=== PATIENT | male | born 1955 | race Native Hawaiian/Other Pacific Islander ===

== ENCOUNTER 2023-04-28 12:03 | Emergency (ER) | payer MEDICARE, OTHER, SELFPAY ==
[2023-04-28 12:36] VITALS: BP 117/67; PULSE 75; RESP 16; TEMP 36.6; O2SAT 97; BMI 23.5
--- NOTE | 2023-04-28 14:47 | ED.GENADULT ---
HPI - General Adult General Time Seen by Provider: 14:47 Date Seen: 04/28/23 Chief complaint: Unspecified Complaint, Adult Stated complaint: Bump on Back Arthur Him Time Seen by Provider: 04/28/23 14:45 Source: patient and RN notes reviewed Mode of arrival: ambulatory Limitations: no limitations History of Present Illness HPI narrative: Patient is a 68-year-old male coming in accompanied by female relative with concern of a lesion on his back that is painful. It has been there about a month, feels like it is getting bigger. Is now painful. No fevers. Female relative notes that she gets similar infected areas of her skin. It does not sound like he has had infected sebaceous cyst before. Related Data Previous Rx's Medication Instructions Recorded cephalexin 500 mg tablet 500 mg PO TID #21 tabs 04/28/23 Allergies Allergy/AdvReac Type Severity Reaction Status Date / Time No Known Drug Allergies Allergy Verified 04/28/23 12:41 Review of Systems Narrative: As per HPI Exam Const: Vital Signs, click to edit/add: Vital Signs - 24 hr 04/28/23 12:36 Temperature 98 F Pulse Rate [Pulse Oximeter] 75 Respiratory Rate 16 Blood Pressure [Ri ght Upper Arm] 117/67 Pulse Oximetry 97 Oxygen Delivery Me thod Room Air Documenting provider has reviewed patient's vital signs: yes Other: Patient is a 68-year-old male lying on his left side. He has some depigmented areas on his back consistent with vitiligo. Overlying the right shoulder blade area, has erythematous slightly raised painful and mildly fluctuant lesion, about dime-sized. There is a little central pustule that I can see. Needle was used to just open the central pustule area. Got a small amount of purulent drainage and then blood, minimal. There is inflammatory change about this. Overall lesion is small. Course Vital Signs Vital signs: Initial Vital Signs Temperature 98 F 04/28/23 12:36 Temperature Source Temporal Artery Scan 04/28/23 12:36 Pulse Rate 75 04/28/23 12:36 Respiratory Rate 16 04/28/23 12:36 Blood Pressure 117/67 04/28/23 12:36 Blood Pressure Mean 83 04/28/23 12:36 Blood Pressure Position Supine 04/28/23 12:36 Pulse Oximetry 97 04/28/23 12:36 Oxygen Delivery Method Room Air 06/10/23 12:36 Vital Signs Temperature 98 F 04/28/23 12:36 Pulse Rate 75 04/28/23 12:36 Respiratory Rate 16 04/28/23 12:36 Blood Pressure 117/67 04/28/23 12:36 Pulse Oximetry 97 04/28/23 12:36 Oxygen Delivery Method Room Air 04/28/23 12:36 Temperature 98 F 04/28/23 12:36 Pulse Rate 75 04/28/23 12:36 Respiratory Rate 16 04/28/23 12:36 Blood Pressure 117/67 04/28/23 12:36 Pulse Oximetry 97 04/28/23 12:36 Oxygen Delivery Method Room Air 04/28/23 12:36 Discharge Plan Discharge Clinical Impression: Infected cyst of skin Patient Disposition: Home, Self-Care Condition: Stable Instructions: Cyst (ED) Additional Instructions: Start antibiotic and take as prescribed. Can use some Tylenol per bottle directions as needed for pain control. May need to use a bandage and some bacitracin as this may drained. If the lesion does not completely resolve, recommend follow up in clinic in 2-4 weeks to assess this for possible excision. If this is a small sebaceous cyst, you want to remove it when it is not infected. If the area of redness is getting bigger, have increasing pain or concerned that the infection is worsening, seek re-evaluation in the interim. Activity Level: Activity as Tolerated Prescriptions: New cephalexin 500 mg tablet 500 mg PO TID Qty: 21 0RF Stand Alone Forms: [facility] Info Instructions
== END 2023-04-28 15:25 | disposition home or self-care (01) ==
PROVIDERS: Emergency Provider Family Medicine
DX: L72.9 Follicular cyst of the skin and subcutaneous tissue, unspecified (principal)
CPT/HCPCS: 99282; 99283

== ENCOUNTER 2024-11-06 15:31 | Emergency (ER) | payer MEDICARE, OTHER, SELFPAY ==
[2024-11-06 15:48] VITALS: BP 143/83; PULSE 100; RESP 16; TEMP 36.9; O2SAT 94
[2024-11-06 16:49] LABS: PCR FLU A Negative PCR FLU A (Negative); PCR FLU B Negative PCR FLU B (Negative); PCR RSV Negative PCR RSV (Negative); SARS PCR* Negative SARS-CoV-2 (Negative)
--- NOTE | 2024-11-06 17:26 | CRLHL7_ITS ---
For Patients: As a result of the Century Cures Act, medical imaging exams and procedure reports are released immediately into your electronic medical record. You may view this report before your referring provider. If you have questions, please contact your health care provider. INDICATION: Cough. TECHNIQUE: Chest 2 view. COMPARISON: None. FINDINGS: Cardiovascular: Heart size and vasculature are normal in caliber and appearance. Lungs and pleural spaces: No focal consolidation, pleural effusion, or pneumothorax. Minimal atelectasis in the right costophrenic angle. There is a subtle spiculated nodular opacity in the left upper lung overlying the 6th posterior rib measuring approximately 8 mm. Bones and soft tissues: No significant findings. IMPRESSION: 1. No acute cardiopulmonary findings. 2. Subtle spiculated nodular opacity in the left upper lung. This could be further evaluated with nonemergent chest CT. Dictated by Magdalena Johnson MD @ 11/06/2024 6:22:42 PM (Electronically Signed)
--- NOTE | 2024-11-06 17:29 | ED_ITS ---
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 Symptoms have been going on for the past 4 days. Is not aware of any other sick contacts. He does have prostate cancer in takes daily Xtandi. No recent changes to his regimen. Denies fevers but has had some chills. Has been feeling mildly fatigued. Denies chest pain, shortness of breath, abdominal pain, diarrhea, constipation, numbness, headache, vision changes, lightheadedness, dizziness. Has been using cepacol lozenges with some improvement in his symptoms. His cough has been dry. Has not noticed any difficulty breathing. Has some mild pain when he swallows. States his main co ncern was so sore throat. Related Data Home Medications ?Medication ?Instructions ?Recorded ?Confirmed atorvastatin 20 mg tablet 20 mg PO QPM 11/06/24 11/06/24 enzalutamide 40 mg capsule (Xtandi) 160 mg PO DAILY 11/06/24 11/06/24 Allergies Allergy/AdvReac Type Severity Reaction Status Date / Time No Known Drug Allergies Allergy Verified 12/10/23 13:34 Review of Systems Status of ROS: Reports: 10 or more systems reviewed and unremarkable except as noted in History and below [facility] Social History Smoking Status: Never smoker Exam Narrative: Exam Narrative: Const: Well-nourished, Well-developed, in mild distress Eyes: PERRL, no conjunctival injection, and symmetrical lids HENT: Atraumatic external nose and ears. Moist mucous membranes. Mild oropharynx erythema. Uvula midline, no tonsillar exudates or swelling. No swelling noticed underneath the tongue Neck: Symmetric, trachea midline, No thyromegaly. CVS: RRR, No murmurs or gallops. Peripheral pulses 2+ and equal in all extremities RESP: Unlabored respiratory effort. Clear to auscultation bilaterally. GI: Nontender/Nondistended, No rebound or guarding. MSK:Extremities w/o deformity, Normal Active ROM Skin: Warm, Dry. No rashes or lesions. Neuro: Normal Muscle tone, No focal neurological deficits. Psych: Awake, Alert, & Oriented x3. Appropriate mood and affect. Const: Vital Signs, click to edit/add: Vital Signs - 24 hr 11/06/24 15:48 Temperature 98.4 F Pulse Rate [Pulse Oximeter] 100 Respiratory Rate 16 Blood Pressure [Ri ght Upper Arm] 143/83 H Pulse Oximetry 94 Oxygen Delivery Me thod Room Air Course Vital Signs Vital signs: Initial Vital Signs Temperature 98.4 F 11/06/24 15:48 Temperature Source Oral 11/06/24 15:48 Pulse Rate 100 11/06/24 15:48 Respiratory Rate 16 11/06/24 15:48 Blood Pressure 143/83 H 11/06/24 15:48 Blood Pressure Mean 103 11/06/24 15:48 Blood Pressure Position Sitting 11/06/24 15:48 Pulse Oximetry 94 11/06/24 15:48 Oxygen Delivery Method Room Air 11/06/24 15:48 Vital Signs Temperature 98.4 F 11/06/24 15:48 Pulse Rate 100 11/06/24 15:48 Respiratory Rate 16 11/06/24 15:48 Blood Pressure 143/83 H 11/06/24 15:48 Pulse Oximetry 94 11/06/24 15:48 Oxygen Delivery Method Room Air 11/06/24 15:48 Temperature 98.4 F 11/06/24 15:48 Pulse Rate 100 11/06/24 15:48 Respiratory Rate 16 11/06/24 15:48 Blood Pressure 143/83 H 11/06/24 15:48 Pulse Oximetry 94 11/06/24 15:48 Oxygen Delivery Method Room Air 11/06/24 15:48 Medical Decision Making MDM Narrative Medical decision making narrative: Patient is a 69-year-old male presenting to the emergency department for sore throat her viral symptoms. Patient is not showing signs of peritonsillar absce ss, Nam angina, retropharyngeal abscess,Lemierre disease or any other concerning oral pharynx or deep neck space abscesses. Imaging is not necessary. He is due to him though taking medications for his cancer I will check some basic labs including CBC, BMP, troponin, EKG. Will do chest x-ray to look for signs of pneumonia. COVID/flu/RSV test ordered. Viral swabs are negative. His white count did come back slightly elevated at 13.7 but chest x-ray shows no clear sign of pneumonia. Does show a subtle nodular opacity left upper lung. This needs to be evaluated with a nonemergent chest CT. Considering he has the elevated white count and other history of prostate cancer I will do this CT scan today. It was done reviewed by myself and the radiologist showing some pulmonary nodules and a possible right upper lobe pneumonia. Cannot say for certain but I will treat him cautionary early with Augmentin. Informed him to have close follow-up with his primary care provider. Him and his daughter agree with this plan. I did give him a dose of dexamethasone for sore throat. He does have a primary care appointment in the next couple weeks. Lab Data Labs: Lab Results 11/06/24 11/06/24 11/06/24 Range/Units 16:00 17:26 17:41 WBC 13.70 H (4.50-11.00) K/uL RBC 3.83 L (4.30-5.90) m/uL Hgb 11.5 L (13.5-17.5) gm/dL Hct 34.6 L (37.0-53.0) % MCV 90 (80-100) fL MCH 30 (26-34) pg MCHC 33 (32-36) gm/dL RDW Coeff of Katherine 13.6 (11.5-15.5) % Plt Count 237 (140-440) K/uL Neut % (Auto) 43.0 (42.0-72.0) % Lymph % (Auto) 50.0 H (20-44) % [place] % (Auto) 50.0 H (0.0-11.0) % Eos % (Auto) 0.0 (0.0-7.0) % Baso % (Auto) 1.0 (0.0-3.0) % Neut # (Auto) 5.90 (1.7-7.0) K/uL Lymph # (Auto) 6.90 H (0.90-2.90) K/uL [place] # (Auto) 6.90 H (0.00-0.90) K/UL Eos # (Auto) 0.00 (0.00-0.50) K/uL Baso # (Auto) 0.10 (0.00-0.30) K/uL Abs Immat Gran (auto) 0.00 (0.00-0.30) K/uL Imm/Tot Granulo (auto) 0.0 % Diff Slide Review Req Man Differential (Acceptable) Sodium 139 (135-149) mmol/L Potassium 4.0 (3.6-5.1) mmol/L Chloride 106 (96-114) mmol/L Carbon Dioxide 25 (20-32) mmol/L Anion Gap 8 (7-15) mEq/L BUN 14 (7-30) mg/dL Creatinine 0.8 (0.5-1.5) mg/dL Estimated GFR 96 ml/min Glucose 112 (60-115) mg/dL Calcium 9.6 (8.4-10.6) mg/dL SARS-CoV-2 (PCR) Negative SARS-CoV-2 (Negative) Influenza Type A (PCR) Negative PCR FLU A (Negative) Influenza Type B (PCR) Negative PCR FLU B (Negative) RSV (PCR) Negative PCR RSV (Negative) POC Troponin I 0.01 (0.01-0.04) ng/ml Imaging Data Chest x-ray: Attestation: I have reviewed the pertinent imaging results. Radiologist's impression: 1. No acute cardiopulmonary findings. 2. Subtle spiculated nodular opacity in the left upper lung. This could be further evaluated with nonemergent chest CT. Dictated by Magdalena Johnson MD @ 11/06/2024 6:22:[address] scan - chest: Attestation: I have reviewed the pertinent imaging results. Radiologist's impression: 1. Patchy ground-glass opacities and minimal consolidation in the right upper lobe and right middle lobe are likely infectious or inflammatory. 2. Noncalcified pulmonary nodules measuring up to 9 mm. Some of these likely represent benign intrapulmonary lymph nodes. No suspicious left upper lobe nodule. Please see follow-up guidelines below. 3. Few small indeterminate sclerotic osseous lesions. Metastatic disease cannot be excluded. ECG Data Attestation: I personally reviewed and interpreted this ECG as follows: Prior ECG tracings: not available for review Interpretation: Normal sinus rhythm with a rate 97 beats per minute, normal intervals, normal axis, no ST or T-wave abnormalities. Discharge Plan Discharge Clinical Impression: Acute sore throat Pneumonia Qualifiers: Pneumonia type: due to unspecified organism Laterality: right Lung location: upper lobe of lung Qualified Code(s): J18.9 - Pneumonia, unspecified organism Patient Disposition: Home, Self-Care Condition: Stable Instructions: Upper Respiratory Infection (DC) Additional Instructions: Make sure to follow up with your primary care provider about your chest CT findings. You do have a pulmonary nodule that will need to be followed up on. Take the antibiotics as directed. Return for new worsening symptoms Prescriptions: No Action atorvastatin 20 mg tablet 20 mg PO QPM Xtandi 40 mg capsule 160 mg PO DAILY Follow Up/Referrals: Provider,Not a Local [Primary Care Provider] - Stand Alone Forms: [facility] Info Instructions
[2024-11-06 17:44] LABS: Hematocrit 34.6 % (37.0-53.0); Hemoglobin* 11.5 gm/dL (13.5-17.5); Mean Corpuscular HGB Conc 33 gm/dL (32-36); Mean Corpuscular Hemoglobin 30 pg (26-34); Mean Corpuscular Volume 90 fL (80-100); Platelet Count* 237 K/uL (140-440); RDW Coefficient of Variation % 13.6 % (11.5-15.5); Red Blood Count 3.83 m/uL (4.30-5.90)
[2024-11-06 17:53] LABS: Chloride* 106 mmol/L (96-114); Sodium* 139 mmol/L (135-149)
[2024-11-06 17:54] LABS: Slide Review Reflex Yes
[2024-11-06 17:54] LABS: Troponin, Point-of-Care* 0.01 ng/ml (0.01-0.04)
[2024-11-06 17:56] LABS: Anion Gap 8 mEq/L (7-15); Blood Urea Nitrogen* 14 mg/dL (7-30); Carbon Dioxide* 25 mmol/L (20-32); Creatinine* 0.8 mg/dL (0.5-1.5); Estimated Glomerular Filt Rate 96 ml/min
[2024-11-06 17:57] LABS: Calcium* 9.6 mg/dL (8.4-10.6); Glucose* 112 mg/dL (60-115)
[2024-11-06 18:21] LABS: Slide Review Req Man Differential (Acceptable)
[2024-11-06 18:23] LABS: Total Cells Counted 100
--- NOTE | 2024-11-06 18:54 | CRLHL7_ITS ---
For Patients: As a result of the Century Cures Act, medical imaging exams and procedure reports are released immediately into your electronic medical record. You may view this report before your referring provider. If you have questions, please contact your health care provider. INDICATION: Elevated WBC, cough, history of prostate cancer. TECHNIQUE: CT of the chest without IV contrast. Coronal and sagittal reconstructions. COMPARISON: Same day chest radiograph. FINDINGS: Cardiovascular structures: Normal heart size. Normal caliber thoracic aorta and central pulmonary arteries. Mediastinum and viri: No pathologically enlarged lymph nodes. No pericardial effusion. Lungs and pleura: Patchy ground-glass opacities in the right upper lobe and right middle lobe are likely infectious or inflammatory. Minimal consolidation in the posteromedial right middle lobe. No pleural effusion or pneumothorax. No central endobronchial lesion or significant bronchial wall thickening. 4 mm noncalcified pulmonary nodule along the minor fissure (series 3, image 55). Adjacent elongated noncalcified pulmonary nodules along the right major fissure measuring 6 mm and 9 mm (image 60). 3 mm noncalcified pulmonary nodule in the lingula (image 69). No suspicious spiculated nodule identified in the left upper lobe to correspond with the findings on chest radiograph. Chest wall: Mildly prominent bilateral axillary lymph nodes are likely reactive. Upper abdomen: Small hiatal hernia. Remainder unremarkable. Bones: Small sclerotic lesions in the T2 and T6 vertebral bodies and sternum. IMPRESSION: 1. Patchy ground-glass opacities and minimal consolidation in the right upper lobe and right middle lobe are likely infectious or inflammatory. 2. Noncalcified pulmonary nodules measuring up to 9 mm. Some of these likely represent benign intrapulmonary lymph nodes. No suspicious left upper lobe nodule. Please see follow-up guidelines below. 3. Few small indeterminate sclerotic osseous lesions. Metastatic disease cannot be excluded. [employer] GUID[employer]IN[employer] - SOLID NODULES: : SINGLE LOW RISK - nodule less than 6 mm: No routine follow-up. - nodule 6-8 mm: CT at 6-12 months, then consider CT at 18-24 months. - nodule greater than 8 mm: Consider CT at 3 months, PET/CT or tissue sampling. SINGLE HIGH RISK - nodule less than 6 mm: Optional CT at 12 months. - nodule 6-8 mm: CT at 6-12 months, then CT at 18-24 months. - nodule greater than 8 mm: Consider CT at 3 months, PET/CT or tissue sampling. MULTIPLE LOW RISK - nodule less than 6 mm: No routine follow-up. - nodule 6-8 mm: CT at 3-6 months, then consider CT at 18-24 months. - nodule greater than 8 mm: CT at 3-6 months, then consider CT at 18-24 months. MULTIPLE HIGH RISK - nodule less than 6 mm: Optional CT at 12 months. - nodule 6-8 mm: CT at 3-6 months, then at 18-24 months. - nodule greater than 8 mm: CT at 3-6 months, then at 18-24 months. Please note that all CT scans at this facility use dose modulation, iterative reconstruction, and/or weight-based dosing when appropriate to reduce radiation dose to as low as reasonably achievable. Dictated by Magdalena Johnson MD @ 11/06/2024 8:11:47 PM (Electronically Signed)
== END 2024-11-06 20:51 | disposition home or self-care (01) ==
PROVIDERS: Emergency Provider Student in an Organized Health Care Education/Training Program; PCP Family Medicine
DX: J18.9 Pneumonia, unspecified organism (principal); J02.9 Acute pharyngitis, unspecified
CPT/HCPCS: 36415; 71046; 71250; 80048; 84484; 85025; 87631; 93005; 99283; 99284